=== PATIENT | female | born 1985 | race African-American/Black ===

== ENCOUNTER 2022-05-21 07:42 | Inpatient (IN) | payer OTHER ==
[2022-05-21 08:43] LABS: BASO % 0.5 % (0-2.0); EOS % 0.7 % (0-4.5); HEMATOCRIT 29.4 % (32.4-45.2); HEMOGLOBIN 9.7 GM/dL (10.7-15.3); LYMPH % 31.8 % (8-40); MCH 26.4 pg (25.7-33.7); MCHC 32.9 g/dl (32.0-36.0); MEAN CELL VOLUME 80.3 fl (80-96); MEAN PLT VOLUME 8.2 fl (7.5-11.1); MONO % 10.5 % (3.8-10.2); NEUT % 56.5 % (42.8-82.8); PLATELET COUNT 215 10^3/uL (134-434); RBC 3.66 M/mm3 (3.60-5.2); RDW 14.9 % (11.6-15.6); WHITE BLOOD COUNT 9.2 K/mm3 (4.0-10.0)
[2022-05-21 08:52] LABS: INR 1.07 (0.83-1.09); PROTHROMBIN TIME (PATIENT) 12.3 SEC (9.7-13.0)
[2022-05-21 08:54] LABS: ACTIVATED PTT 27.8 SECONDS (25.2-36.5)
[2022-05-21 09:01] LABS: BLOOD UREA NITROGEN 6.2 mg/dL (7-18); CALCIUM 8.7 mg/dL (8.5-10.1)
[2022-05-21 09:05] LABS: CREATININE 0.5 mg/dL (0.55-1.3)
[2022-05-21 09:20] VITALS: BMI 20.9
[2022-05-21] MEDS: ELECTROLYTE-148 SOLN 1,000 ML IV SCH ×2 (09:30→16:30)
[2022-05-21] MEDS ORDERED: OXYTOCIN 30 UNITS in 0.9% NS 30 UNIT/500 ML INFUS.BAG IVPB SCH (09:50)
[2022-05-21] MEDS ORDERED: AMPICILLIN SODIUM 2 GM VIAL ONE (09:56)
[2022-05-21] MEDS ORDERED: OXYTOCIN 30 UNITS in 0.9% NS 30 UNIT/500 ML INFUS.BAG IVPB ONE (09:56)
[2022-05-21] MEDS ORDERED: AMPICILLIN - 2 GM in SODIUM CHLORIDE 100 ML IVPB ONE (10:00)
[2022-05-21] MEDS ORDERED: AMPICILLIN SODIUM 1 GM VIAL ONE ×3 (13:30→21:17)
[2022-05-21] MEDS: AMPICILLIN - 1 GM in SODIUM CHLORIDE 100 ML IVPB SCH ×3 (13:35→21:20)
[2022-05-21 15:02] LABS: HIV INTERPRETATION NEGATIVE (NEGATIVE)
[2022-05-21] MEDS ORDERED: FENTANYL/BUPIVACAINE/NS/PF - PCEA - 50 ML DISP.SYRIN EP ONE (16:29)
[2022-05-21] MEDS ORDERED: NALOXONE HCL 0.4 MG/ML VIAL IVPUSH PRN (16:36)
[2022-05-21] MEDS ORDERED: BUPIVACAINE HCL/PF 0.25% (2.5MG/ML) 10 ML VIAL ONE (16:42)
[2022-05-21] MEDS ORDERED: FENTANYL/BUPIVACAINE/NS/PF - PCEA - 50 ML DISP.SYRIN EP SCH (16:45)
[2022-05-21] MEDS ORDERED: LIDOCAINE HCL/EPINEPHRINE/PF 20 ML VIAL ONE (19:37)
[2022-05-21] MEDS ORDERED: DEXTROSE 5%-LACTATED RINGERS 1,000 ML IV SCH (19:45)
[2022-05-21] MEDS ORDERED: OXYTOCIN 20 UNITS in 0.9% NS 20 UNIT/1,000 ML INFUS.BAG IV ONE (21:41)
[2022-05-21] MEDS ORDERED: LIDOCAINE HCL 1% PRESERVATIVE FREE - 30ML VIAL ONE (21:41)
[2022-05-21] MEDS ORDERED: METHYLERGONOVINE MALEATE 0.2 MG/1 ML AMP IM PRN (23:08)
[2022-05-21] MEDS ORDERED: BENZOCAINE 20% 57 GM BOTTLE TP PRN (23:08)
[2022-05-21] MEDS ORDERED: WITCH HAZEL 50% (TUCKS) 40 PAD/JAR PAD TP PRN (23:08)
[2022-05-21] MEDS ORDERED: BISACODYL 10 MG SUPP.RECT RC PRN (23:08)
[2022-05-21] MEDS ORDERED: ACETAMINOPHEN 325 MG TABLET (FP) PO PRN (23:08)
[2022-05-21] MEDS ORDERED: BENZOCAINE 28 GM HEMORRHOIDAL OINTMENT TP PRN (23:08)
[2022-05-21] MEDS ORDERED: OXYTOCIN 20 UNITS in 0.9% NS 20 UNIT/1,000 ML INFUS.BAG IV SCH (23:15)
[2022-05-21] MEDS ORDERED: oxyCODONE HCL 5 MG TABLET ONE (23:45)
[2022-05-21] MEDS: oxyCODONE HCL 5 MG TABLET PO PRN (23:46)
[2022-05-22] MEDS ORDERED: ACETAMINOPHEN 1000 MG/100 ML BAG IVPB ONE (00:50)
[2022-05-22] MEDS ORDERED: ACETAMINOPHEN INJECTION 100 ML IVPB ONE (01:00)
[2022-05-22] MEDS: IBUPROFEN 600 MG TABLET (FP) PO PRN (02:26)
[2022-05-22 06:38] LABS: BASO % 0.3 % (0-2.0); HEMATOCRIT 32.2 % (32.4-45.2); HEMOGLOBIN 10.4 GM/dL (10.7-15.3); LYMPH % 14.8 % (8-40); MCH 25.8 pg (25.7-33.7); MCHC 32.2 g/dl (32.0-36.0); MEAN CELL VOLUME 80.2 fl (80-96); MEAN PLT VOLUME 8.9 fl (7.5-11.1); MONO % 9.5 % (3.8-10.2); NEUT % 75.4 % (42.8-82.8); PLATELET COUNT 238 10^3/uL (134-434); RBC 4.02 M/mm3 (3.60-5.2); RDW 15.3 % (11.6-15.6)
[2022-05-22] MEDS: oxyCODONE HCL 5 MG TABLET PO PRN ×3 (08:12→22:54)
[2022-05-22] MEDS: PRENATAL VITAMINS W/ FOLIC ACID TABLET (FP) PO SCH (11:00)
[2022-05-22] MEDS ORDERED: SENNOSIDES/DOCUSATE COMBO (SENNA PLUS) TABLET (UD) PO PRN (22:00)
[2022-05-23] MEDS: IBUPROFEN 600 MG TABLET (FP) PO PRN (08:08)
[2022-05-23] MEDS: PRENATAL VITAMINS W/ FOLIC ACID TABLET (FP) PO SCH (09:04)
[2022-05-23 10:51] VITALS: BP 101/69; PULSE 80; TEMP 98.2
== END 2022-05-23 16:55 | disposition home or self-care (01) | DRG 560 ==
LOC: JLDR 07:42 → J3W 05-22 01:41
PROVIDERS: ADMIT Obstetrics & Gynecology; ATTEND Obstetrics & Gynecology
PROC: 10E0XZZ Delivery of Products of Conception, External Approach (ICD-10-PCS; principal; 2022-05-21)
PROC: 10907ZC Drainage of Amniotic Fluid, Therapeutic from Products of Conception, Via Natural or Artificial Opening (ICD-10-PCS; 2022-05-21)
PROC: 3E033VJ Introduction of Other Hormone into Peripheral Vein, Percutaneous Approach (ICD-10-PCS; 2022-05-21)
DX: O80 Encounter for full-term uncomplicated delivery (principal); Z3A.39 39 weeks gestation of pregnancy; Z37.0 Single live birth
CPT/HCPCS: 36415; 59409; 80048; 85025; 85610; 85730; 86780; 86850; 86900; 86901; 87389; C9803-CS; U0003; U0005